=== PATIENT | female | born 2000 | race Caucasian/White ===

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

== ENCOUNTER 2018-11-07 00:15 | Emergency (ER) | payer OTHER ==
[~2018-11-07] VITALS: Ht 142.2 cm; Wt 45.5 kg
[~2018-11-07 00:15] MED LIST changes: +CIPR7.5D LEFT EAR
[2018-11-07 00:33] VITALS: Ht 142.2 cm; Wt 45.5 kg
--- NOTE | 2018-11-07 02:23 | PSY ---
Date/Time of Note Date/Time of Note DATE: 11/07/18 TIME: 02:13 Psychiatric Subjective Eval Consent Pt consented to telemedicine: Yes Subjective Evaluation Patient location: emergency Chief Complaint: Anxiety, drove self to an [employer] car and asked for help. Hx of anxiety Reason for consult: si History of present illness patient is i was planning on driving my car into anything , she states that she has been feeling suicidal for the past month, she is currently taking cymbalta 80 mg , gabapentin 400 mg po qhs and remeron 30 mg po qhs and she goes to therapy every 2 weeks , she was last admitted to the hospital when she was 13, she denies any past manic or psychotic symptoms, she smoked cannabis, she states that she has been feeling suicidal because " she hates her life , and her family and she feels stuck". She has been feeling very anxious , leading to insomnia and irritability, she has been feeling low motivation and no energy for months. Past psychiatric history past suicidal attempt yes at 13 Hospitalization: yes Medical history Problems Medical Problems: (1) Abdominal pain Status: Acute (2) Constipation Status: Acute (3) Hordeolum Status: Acute (4) Left ear pain Status: Acute (5) Left ear pain Status: Acute Allergies: Coded Allergies: No Known Allergies (Verified Allergy, Mild, 08/06/14) Substance Abuse Substance abuse history: Yes (cannabis ) Prior substance abuse treatmen: No Social History Level of education: hs DPA/Conservatorship: No Occupation/Long-Term: unemployed Psychiatric Objective Eval Review of Systems: Review of Systems: Not Applicable Physical Examination: Physical Examination: Applicable Sleep: Insomnia Appetite: Decreased Energy: Decreased Interest: Decreased Mental Status Examination: Appearance: Disheveled Eye Contact: Poor Psychomotor Activity: Slow Behavior: Cooperative Speech: Soft AFFECT: Depressed Mood: Depressed Though Process: Linear Thought Content: Normal Suicidal: Yes Homicidal: No On 72 hour hold: No Orientation: x3 Cognition: Alert Insight: Impared Judgement: Impared Attention Span: Intact Assessment and Plan Assessment/Diagnosis Diagnosis 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
--- NOTE | 2018-11-07 02:42 | ERD ---
ER Documentation Chief Complaint Chief Complaint Anxiety, drove self to an [employer] car and asked for help. Hx of anxiety HPI This is a 18-year-old female presents for evaluation of depression. Patient had walked of the police car, and asked for help stating that she wanted to kill herself. Patient has thoughts of driving into traffic, on evaluation, she is minimally verbal, tearful. States she has been depressed for a while, and states she has thought about suicide for a long time. ROS All systems reviewed and are negative except as per history of present illness. Medications Home Meds Active Scripts Ciprofloxacin Hcl/Dexameth (Ciprodex Otic Suspension) 7.5 Ml Drops.susp, 4 DROP LEFT EAR BID for 7 Days, EA Prov:ALFREDA KAY PA-C 04/07/17 Ondansetron (Ondansetron Odt) 8 Mg Tab.rapdis, 8 MG PO Q6H PRN for NAUSEA AND/OR VOMITING, #10 TAB Prov:LICHA HERRON DO 05/18/16 Allergies Allergies: Coded Allergies: No Known Allergies (Verified Allergy, Mild, 08/06/14) PMhx/Soc History of Surgery: No Anesthesia Reaction: No Hx Neurological Disorder: No Hx Respiratory Disorders: No Hx Cardiac Disorders: No Hx Psychiatric Problems: Yes (anxiety, depression, insomnia) Hx Miscellaneous Medical Probl: No Hx Alcohol Use: Yes (sometimes) Hx Substance Use: Yes (Marijuana sometimes) Hx Tobacco Use: No Smoking Status: Never smoker Physical Exam Vitals Vital Signs Date Temp Pulse Resp B/P (MAP) Pulse Ox O2 O2 Flow FiO2 Time Delivery Rate 11/07/18 98.4 80 18 125/94 100 Room Air 00:43 (104) 11/07/18 98.4 89 18 125/94 100 00:33 (104) Physical Exam Const: Patient's affect is very flat, well-developed, well-nourished Head: Atraumatic Eyes: Normal Conjunctiva ENT: Normal External Ears, Nose and Mouth. Neck: Full range of motion. No meningismus. Resp: Clear to auscultation bilaterally, no wheezes rales or rhonchi Cardio: Regular rate and rhythm, no murmurs Abd: Soft, non tender, non distended. Normal bowel sounds Skin: No petechiae or rashes Back: No midline or flank tenderness Ext: No cyanosis, or edema Neur: Awake and alert Psych: Affect is flat, endorses suicidal ideation Result Diagram: 11/07/18 0200 Results 24 hrs Laboratory Tests Test 11/07/18 02:00 White Blood Count 12.7 10^3/ul Red Blood Count 3.87 10^6/ul Hemoglobin 12.4 g/dl Hematocrit 37.2 % Mean Corpuscular Volume 96.1 fl Mean Corpuscular Hemoglobin 32.0 pg Mean Corpuscular Hemoglobin Concent 33.3 g/dl Red Cell Distribution Width 13.2 % Platelet Count 274 10^3/UL Mean Platelet Volume 9.9 fl Immature Granulocytes % 0.400 % Neutrophils % 74.3 % Lymphocytes % 18.0 % Monocytes % 6.0 % Eosinophils % 1.0 % Basophils % 0.3 % Nucleated Red Blood Cells % 0.0 /100WBC Immature Granulocytes # 0.050 10^3/ul Neutrophils # 9.4 10^3/ul Lymphocytes # 2.3 10^3/ul Monocytes # 0.8 10^3/ul Eosinophils # 0.1 10^3/ul Basophils # 0.0 10^3/ul Nucleated Red Blood Cells # 0.0 10^3/ul Departure Diagnosis: Primary Impression: Depression Depression Type: unspecified Qualified Codes: F32.9 - Major depressive disorder, single episode, unspecified Additional Impression: Suicidal ideation Condition: STEPHANIA Christie MD November 07, 2018 02:42
--- NOTE | 2018-11-07 18:40 | PSY ---
Date/Time of Note Date/Time of Note DATE: 11/07/18 TIME: 21:36 Psychiatric Subjective Eval Consent Pt consented to telemedicine: Yes Subjective Evaluation Patient location: emergency Chief Complaint: Anxiety, drove self to an [employer] car and asked for help. Hx of anxiety Reason for consult: SI History of present illness HPI: 18 yo female with ho depression, substance use,was seen earlier by psychiatry who reported by had Si with plan to drive into something to kill herself. also spoke with nurse who reports pt came in to ED with si with plan to go into traffic. spoke with pt. Pt reports she came in because "wants to go to a psych rocha." Admits to si with plan to drive into something. Per nurse, pt approached police herself and told them she has si. Admits to thc use, denies psychosis. Depressed Past Psych HX: +ho suicide attempts and psych admits PMhx: denies no meds nkda MSE: cooperative, casually groomed, soft speech, depressed, restricted affect, organized, no delusions or avh +SI voluntary [place] [facility] [place]ization: yes Medical history Problems Medical Problems: (1) Abdominal pain Status: Acute (2) Constipation Status: Acute (3) Depression Status: Acute (4) Hordeolum Status: Acute (5) Left ear pain Status: Acute (6) Left ear pain Status: Acute (7) Suicidal ideation Status: Acute Allergies: Coded Allergies: No Known Allergies (Verified Allergy, Mild, 08/06/14) Social History Marital status: single Level of education: DPA/Conservatorship: No Occupation/[employer]: unemployed Psychiatric Objective Eval Mental Status Examination: Laboratory Results Laboratory Tests Test 11/07/18 02:00 11/07/18 18:05 White Blood Count 12.7 10^3/ul Red Blood Count 3.87 10^6/ul Hemoglobin 12.4 g/dl Hematocrit 37.2 % Mean Corpuscular Volume 96.1 fl Mean Corpuscular Hemoglobin 32.0 pg Mean Corpuscular Hemoglobin Concent 33.3 g/dl Red Cell Distribution Width 13.2 % Platelet Count 274 10^3/UL Mean Platelet Volume 9.9 fl Immature Granulocytes % 0.400 % Neutrophils % 74.3 % Lymphocytes % 18.0 % Monocytes % 6.0 % Eosinophils % 1.0 % Basophils % 0.3 % Nucleated Red Blood Cells % 0.0 /100WBC Immature Granulocytes # 0.050 10^3/ul Neutrophils # 9.4 10^3/ul Lymphocytes # 2.3 10^3/ul Monocytes # 0.8 10^3/ul Eosinophils # 0.1 10^3/ul Basophils # 0.0 10^3/ul Nucleated Red Blood Cells # 0.0 10^3/ul Urine Color YELLOW Urine Clarity SLIGHTLY CLOUDY Urine pH 5.0 Urine Specific [place] 1.016 Urine Ketones NEGATIVE mg/dL Urine Nitrite NEGATIVE mg/dL Urine Bilirubin NEGATIVE mg/dL Urine Urobilinogen NEGATIVE mg/dL Urine Leukocyte Esterase NEGATIVE Noemí/ul Urine Microscopic RBC 1 /HPF Urine Microscopic WBC 4 /HPF Urine Squamous Epithelial Cells FEW /HPF Urine Bacteria FEW /HPF Urine Mucus MANY /HPF Urine Hemoglobin NEGATIVE mg/dL Urine Glucose NEGATIVE mg/dL Urine Total Protein NEGATIVE mg/dl Sodium Level 144 mmol/L Potassium Level 3.9 mmol/L Chloride Level 112 mmol/L Carbon Dioxide Level 25 mmol/L Anion Gap 7 Blood Urea Nitrogen 9 mg/dl Creatinine 0.61 mg/dl Est Glomerular Filtrat Rate mL/min > 60 mL/min Glucose Level 86 mg/dl Calcium Level 9.6 mg/dl Total Bilirubin 0.3 mg/dl Direct Bilirubin 0.00 mg/dl Indirect Bilirubin 0.3 mg/dl Aspartate Amino Transf (AST/SGOT) 23 IU/L Alanine Aminotransferase (ALT/SGPT) 31 IU/L Alkaline Phosphatase 76 IU/L Total Protein 6.7 g/dl Albumin 3.8 g/dl Globulin 2.90 g/dl Albumin/Globulin Ratio 1.31 Salicylates Level < 1.0 mg/dl Urine Opiates Screen Negative Acetaminophen Level < 10.0 ug/ml Urine Barbiturates Negative Urine Amphetamines Screen Negative Urine Benzodiazepines Screen Negative Urine Cocaine Screen Negative Urine Cannabinoids Positive Ethyl Alcohol Level < 10.0 mg/dl Bedside Glucose 97 mg/dL Assessment and Plan Recommendation/Plan Multiple antipsychotics: No Discharge Disposition: Psychiatric inpatient Legal Status: Voluntary MARK LYONS November 07, 2018 18:40
[2018-11-08 06:31] VITALS: BP 105/67; PULSE 98; RESP 16
== END 2018-11-08 08:49 ==
LOC: E/R 00:15
DX: F32.9 Major depressive disorder, single episode, unspecified (principal); R40.2142 Coma scale, eyes open, spontaneous, at arrival to emergency department; R40.2362 Coma scale, best motor response, obeys commands, at arrival to emergency department; R40.2252 Coma scale, best verbal response, oriented, at arrival to emergency department
CPT/HCPCS: 36415; 80053; 80307; 81001; 81025; 82962; 85025; Z7502; 81003